=== PATIENT | male | born 1955 | race Caucasian/White ===

== ENCOUNTER 2020-04-08 12:08 | Inpatient (IN) | payer OTHER ==
[~2020-04-08] VITALS: Ht 177.8 cm; Wt 106.7 kg
[2020-04-08 13:04] LABS: BASO % 0.8 % (0.0-2.0); EOS # 0.1 (0.0-0.7); EOS % 2.5 % (0-4.0); GRAN # 3.6 (1.4-6.5); HEMATOCRIT 37.8 % (42.0-52.0); HEMOGLOBIN 12.4 g/dl (13.5-18.0); LYMPH # 0.4 (1.2-3.4); LYMPH % 9.1 % (20.0-51.0); MEAN CELL VOLUME 89 fl (80.0-100.0); MEAN CORPUSCULAR HEMOGLOBIN 29 pg (27.0-31.0); MEAN CORPUSCULAR HGB CONC 33 g/dl (33.0-37.0); MEAN PLATELET VOLUME 11.6 fl (7.4-10.4); MONO # 0.5 (0.1-0.6); MONO % 10.4 % (1.7-9.3); PLATELET COUNT 57 K/mm3 (130-400); RED BLOOD COUNT 4.27 M/mm3 (4.20-5.60); REDCELL DISTRIBUTION WIDTH-CV 15.7 % (11.5-14.5)
[2020-04-08 13:09] LABS: INR 1.1 (0.8-3.0); PROTHROMBIN TIME 12.6 SECONDS (9.7-12.8)
[2020-04-08 13:17] LABS: ALBUMIN 3.7 gm/dL (3.5-5.0); BILIRUBIN,TOTAL 1.2 mg/dL (0.0-1.0); C-REACTIVE PROTEIN 1.7 mg/dL (0.0-0.9); CREATININE, serum 0.48 (0.66-1.25); POTASSIUM 4.3 mmol/L (3.4-5.0); TOTAL PROTEIN 6.6 gm/dL (6.4-8.2)
[2020-04-08 14:38] LABS: COLLECTION METHOD CLEAN CATCH
[2020-04-08 14:44] LABS: MUCOUS Present /lpf; PH 5 (5-8); SQUAMOUS EPITHELIAL None Seen /hpf; URINE APPEARANCE Clear; URINE BACTERIA None Seen /hpf; URINE BILIRUBIN Negative (NEGATIVE); URINE BLOOD Negative (NEGATIVE); URINE COLOR Yellow; URINE GLUCOSE Negative (NEGATIVE); URINE KETONE Negative (NEGATIVE); URINE LEUKOCYTE ESTERASE Negative (NEGATIVE); URINE NITRATE Negative (NEGATIVE); URINE PROTEIN(semi-quant) Negative (NEGATIVE); URINE RBC 0-2 /hpf
[2020-04-08] MEDS ORDERED: CALQUENCE100 MG PO (14:51)
[2020-04-08] MEDS ORDERED: PROAIR HFA0.09 MG/AC IH (14:52)
[2020-04-08] MEDS ORDERED: ZOVIRAX400 MG PO (14:52)
[2020-04-08] MEDS ORDERED: FLONASEALLERGY NS (14:52)
[2020-04-08] MEDS ORDERED: NEURONTIN300 MG/CAP PO (14:53)
[2020-04-08] MEDS ORDERED: LEVEMIR100 U/ML SQ (14:53)
[2020-04-08] MEDS ORDERED: INDERAL 20MG20 MG PO (14:54)
[2020-04-08] MEDS ORDERED: GLUCOTROL XL10 MG PO (14:54)
[2020-04-08] MEDS ORDERED: ATIVAN 1MG T1 MG/TAB PO (14:55)
[2020-04-08] MEDS ORDERED: PROTONIX 40MG T40 MG PO (14:56)
[2020-04-08] MEDS ORDERED: ROXICODONE 55 MG/TAB PO (14:56)
[2020-04-08] MEDS ORDERED: ZOFRAN 4MG T4 MG/TAB PO (16:20)
[2020-04-08] MEDS ORDERED: 00186-0372-20 IH (16:49)
[2020-04-08] MEDS ORDERED: ATROVENT NASAL15 ML NS (16:50)
[2020-04-08 18:04] VITALS: BP 125/58; PULSE 77; TEMP 97.9
--- NOTE | 2020-04-08 18:48 | NUR ---
PT ARRIVED TO UNIT @ 1800 VIA CART, REPORTS PAIN TO MID ABD AGOING UP ESOPHAGUS. EMESIS BAG AT BEDSIDE, STATES NAUSEA RELIEVED. AOX4. VSS CHARTED. IVF TO LT FA IV. PHELEBOTOMY CALLED TO RE-DRAW BLOOD CULTURES AND ATTEMPT IN ED WAS NOT SUCCESSFUL. TECH CAME IN AND NO LUCK. 3RD TECH TO COME TO PT. AWAITING NCULTURES FOR 1800 ABX. PT STATES HE IS UNSURE OF HOME MED LIST OR LAST TAKEN BUT ED SPOKE TO OVER PHONE AND CLARIFIED. PT CURRENTLY ASLEEP
[2020-04-08 20:00] VITALS: BP 129/51; PULSE 75; TEMP 98
--- NOTE | 2020-04-08 20:00 | NUR ---
Received report from Breanna. lucina Cliftonhousekeeper/laundry assistant was able to draw blood for cultures. Antibiotic started. Patient complains of pain in abdomen with pain score of 7/10. [place] PRN given. He is alert and oriented. With IV at left wrist with NS at75ml/hr.
[2020-04-09 00:13] VITALS: BP 130/56; PULSE 73; TEMP 98.1
[2020-04-09 04:53] VITALS: BP 110/50; PULSE 74; TEMP 97.4
--- NOTE | 2020-04-09 06:09 | NUR ---
Patient still with complains of pain on his abdomen. [place] PRN given. He asked for Sudafed as well for congestion. Will endorse to day shift nurse.
[2020-04-09 08:13] VITALS: BP 133/56; PULSE 74; TEMP 97.9
--- NOTE | 2020-04-09 08:23 | NUR ---
PT DRANK BOWL OF SOUP WITH BREAKFAST AND EXPERIENCED NAUSEA WITH SMALL CLER EMESIS. STATES ABD PAIN 06/05. GIVEN PRN ZOFRAN AND MORPHINE. AOX4. LAB HERE TO DRAW SECOND CULTURES. NO BM THUS FAR.
[2020-04-09 09:57] LABS: BASO % 0.9 % (0.0-2.0); EOS # 0.1 (0.0-0.7); EOS % 4.4 % (0-4.0); GRAN # 2.2 (1.4-6.5); GRAN % 67.3 % (42.2-75.2); HEMATOCRIT 37.3 % (42.0-52.0); LYMPH # 0.4 (1.2-3.4); LYMPH % 12.1 % (20.0-51.0); MEAN CELL VOLUME 89 fl (80.0-100.0); MEAN CORPUSCULAR HEMOGLOBIN 29 pg (27.0-31.0); MEAN CORPUSCULAR HGB CONC 32 g/dl (33.0-37.0); MEAN PLATELET VOLUME 11.2 fl (7.4-10.4); MONO # 0.5 (0.1-0.6); RED BLOOD COUNT 4.21 M/mm3 (4.20-5.60); REDCELL DISTRIBUTION WIDTH-CV 15.4 % (11.5-14.5)
[2020-04-09 09:59] LABS: PLATELET COUNT 44 K/mm3 (130-400)
[2020-04-09 10:07] LABS: ALBUMIN 3.3 gm/dL (3.5-5.0); BILIRUBIN,TOTAL 1.2 mg/dL (0.0-1.0); CALCIUM 8.6 mg/dL (8.4-10.2); CREATININE, serum 0.52 (0.66-1.25); POTASSIUM 4.3 mmol/L (3.4-5.0); TOTAL PROTEIN 6.1 gm/dL (6.4-8.2)
[2020-04-09 11:29] VITALS: BP 140/56; PULSE 69; TEMP 98.1
--- NOTE | 2020-04-09 15:02 | NUR ---
Plan: Plans to return home. Assessment: SW met with patient about DC plan. Patient report that he resides near [facility] is normally independent. Patient shares that his emergency contact is his sister Emi . Patient reports that his PCP is Dr. Benjamin and he uses the [facility] for medications. Patient reports that he has a ching, walker, and a assisted chair lift. Patient shares that he has transportation. Client denies having any other pharmacy to fill medications. Denies having or needing any home health services. Patient denies having a DPOA but reports his sister knows his wishes. Action: Educated patient on supports available and community resources.
[2020-04-09 15:40] VITALS: BP 115/40; PULSE 67; TEMP 98.3
--- NOTE | 2020-04-09 20:05 | NUR ---
Initial shift assessment done- nauseated, vomiting--will give Phenergan as ordered, pt trying to drink the bowel prep- golytely-- will let him take a short break to let the phenergan work---- Iv fluids of NS at 75cc/hr
--- NOTE | 2020-04-09 20:20 | NUR ---
Patient had 650 mls of orange emesis. Given PRN Phenergan at this time.
[2020-04-09 20:45] VITALS: BP 126/58; PULSE 72; TEMP 98.2
--- NOTE | 2020-04-10 00:05 | NUR ---
Requesting oxycodone and sudafed at this time- having some abd pain 5/,, only wants 5mg of oxycodone p.o ,,, Starting to have stools from bowel prep/liquid browm and the most recent was [place] with flecks of stool--Pt did take 3-4 showers within the past hour-assistance given when needed-
[2020-04-10 01:01] LABS: CLOSTRIDIUM DIFF A/B POS; CLOSTRIDIUM DIFF A/B INTERP Toxigenic C.diff POS
[2020-04-10 01:12] VITALS: BP 128/57; PULSE 70; TEMP 97.7
--- NOTE | 2020-04-10 01:15 | NUR ---
C-diff came back positive,, Jessica CONNELL called with results, ordered antibiotic,, will put patient in Contact Isolation-
[2020-04-10 04:33] VITALS: BP 130/51; PULSE 71; TEMP 97.8
--- NOTE | 2020-04-10 05:31 | NUR ---
Did finally get a couple hours of sleep- did complete about 3/4ths golytely prep-stools cort[place] watery-
[2020-04-10 07:47] LABS: BASO % 0.9 % (0.0-2.0); EOS # 0.1 (0.0-0.7); EOS % 3.4 % (0-4.0); GRAN # 2.2 (1.4-6.5); GRAN % 62.7 % (42.2-75.2); HEMOGLOBIN 11.8 g/dl (13.5-18.0); LYMPH # 0.5 (1.2-3.4); MEAN CELL VOLUME 87 fl (80.0-100.0); MEAN CORPUSCULAR HEMOGLOBIN 30 pg (27.0-31.0); MEAN CORPUSCULAR HGB CONC 34 g/dl (33.0-37.0); MEAN PLATELET VOLUME 11.2 fl (7.4-10.4); MONO # 0.6 (0.1-0.6); MONO % 18.1 % (1.7-9.3); REDCELL DISTRIBUTION WIDTH-CV 15.4 % (11.5-14.5)
[2020-04-10 07:51] LABS: ALBUMIN 3.2 gm/dL (3.5-5.0); CALCIUM 8.3 mg/dL (8.4-10.2); CREATININE, serum 0.54 (0.66-1.25); POTASSIUM 3.8 mmol/L (3.4-5.0); TOTAL PROTEIN 5.9 gm/dL (6.4-8.2)
[2020-04-10 08:19] VITALS: BP 135/51; PULSE 76; TEMP 97.5
[2020-04-10 08:22] LABS: HEMATOCRIT 34.6 % (42.0-52.0)
[2020-04-10 08:23] LABS: PLATELET COUNT 44 K/mm3 (130-400)
[2020-04-10 12:26] VITALS: BP 134/58; PULSE 70; TEMP 98
--- NOTE | 2020-04-10 14:17 | NUR ---
Pt assessment completed and charted, alert/oriented, roomair. I/V flushed with no complications. No N/V/D, pain, numbness, tingling, SOB as per pt at this time. Meds given as per DEC, I/V fluid dc'ed. Pt requested 1 tab/5mg oxycodone and sudafed for his congestion. EDG cancelled and resumed carb controlled diet. No further needs at this time.
--- NOTE | 2020-04-10 15:28 | NUR ---
[facility] contacted the patient via room telephone to revisit the discharge plan. The patient's plan is to return home to [place] with his . There are no additional needs at this time.
[2020-04-10 16:39] VITALS: BP 127/50; PULSE 70; TEMP 97.6
[2020-04-10 19:31] VITALS: BP 126/54; PULSE 75; TEMP 98.4
--- NOTE | 2020-04-10 20:00 | NUR ---
At time of assessment, patient is sitting on edge of bed watching TV. He is alert and oriented and requests PRN roxycodone for leg/feet pain 6/10. Heart sounds are normal/regular, lung sounds are clear. No edema is present. Pulses are strong in radial and pedal areas. No new concerns at this time. Will continue to monitor,
[2020-04-11 00:02] VITALS: BP 115/38; PULSE 69; TEMP 98.3
[2020-04-11 03:56] VITALS: BP 121/46; PULSE 73; TEMP 98
--- NOTE | 2020-04-11 06:05 | NUR ---
Patient has had an uneventful and restful night. No new concerns at this time.
--- NOTE | 2020-04-11 07:27 | NUR ---
PATIENT REFUSED BREATHING TREATMENT THIS AM.
[2020-04-11 07:37] LABS: BASO % 0.9 % (0.0-2.0); EOS # 0.1 (0.0-0.7); EOS % 2.8 % (0-4.0); GRAN # 2.2 (1.4-6.5); GRAN % 67.8 % (42.2-75.2); LYMPH # 0.4 (1.2-3.4); LYMPH % 13.8 % (20.0-51.0); MEAN CELL VOLUME 89 fl (80.0-100.0); MEAN CORPUSCULAR HEMOGLOBIN 29 pg (27.0-31.0); MEAN CORPUSCULAR HGB CONC 33 g/dl (33.0-37.0); MEAN PLATELET VOLUME 11.7 fl (7.4-10.4); MONO # 0.5 (0.1-0.6); MONO % 14.7 % (1.7-9.3); PLATELET COUNT 52 K/mm3 (130-400); RED BLOOD COUNT 4.12 M/mm3 (4.20-5.60); REDCELL DISTRIBUTION WIDTH-CV 15.5 % (11.5-14.5)
[2020-04-11 07:44] LABS: HEMATOCRIT 36.8 % (42.0-52.0)
[2020-04-11 07:47] LABS: CALCIUM 8.5 mg/dL (8.4-10.2); CREATININE, serum 0.72 (0.66-1.25); POTASSIUM 4.2 mmol/L (3.4-5.0)
[2020-04-11 08:50] VITALS: BP 131/52; PULSE 70; TEMP 98.1
--- NOTE | 2020-04-11 09:35 | NUR ---
The patient is to tentatively discharge to his sister's house today, 04/11. [facility] received a referral about the patient needing transportation to his sister's house here in [place]. [facility] met with the patient to inquire about funds so he can pay for a taxi. The patient he states he was told yesterday evening that a taxi voucher could be provided. [facility] provided the taxi voucher through [employer]. There are no additional needs at this time.
--- NOTE | 2020-04-11 09:58 | NUR ---
PT SITTING AT BEDSIDE. VSS, PT WOULD LIKE TO TAKE A SHOWER, D/T DISCHARGE, REMOVED PT'S IVS AND ASSISTED INTO SHOWER. PT WILL CALL WHEN HE IS READY TO D/C WE HAVE A TAXI VOUCHER FOR HIM TO GET A RIDE HOME.
[2020-04-11] MEDS ORDERED: VANCOCIN H125 MG/CAP PO (10:26)
--- NOTE | 2020-04-11 11:24 | NUR ---
pt is discharging. ivs removed. pt walked out.
== END 2020-04-11 11:27 | disposition home or self-care (01) | DRG 372 ==
LOC: COL.ER 12:08 → MEDICAL 16:28
PROVIDERS: Family Medicine; Physician Assistant; Student in an Organized Health Care Education/Training Program; ADMIT Family Medicine
DX: A04.71 Enterocolitis due to Clostridium difficile, recurrent (principal); C81.90 Hodgkin lymphoma, unspecified, unspecified site; K76.6 Portal hypertension; I85.00 Esophageal varices without bleeding; K92.1 Melena; K74.60 Unspecified cirrhosis of liver; R16.1 Splenomegaly, not elsewhere classified; J44.9 Chronic obstructive pulmonary disease, unspecified; D69.6 Thrombocytopenia, unspecified; G62.9 Polyneuropathy, unspecified; T45.1X5A Adverse effect of antineoplastic and immunosuppressive drugs, initial encounter; F41.9 Anxiety disorder, unspecified; E11.9 Type 2 diabetes mellitus without complications; J32.9 Chronic sinusitis, unspecified; K75.81 Nonalcoholic steatohepatitis (NASH); Z90.49 Acquired absence of other specified parts of digestive tract; Z90.89 Acquired absence of other organs; Z87.891 Personal history of nicotine dependence; Z85.46 Personal history of malignant neoplasm of prostate
CPT/HCPCS: OP; 99223-AI; 99232-AI; 99233-AI; 99239; C9113; J0696; J1170; J1815; J2270; J2405; J2550; J2704; J7030; J7120; Q9967